=== PATIENT | female | born 1945 | race Caucasian/White ===

== ENCOUNTER → 2020-07-13 | Outpatient (CLI) | payer MEDICARE ==
[~2020-07-13] MED LIST: PERCOCET 5-3251 EACH PO; PERCOCET PO; ULTRAM 50MG TAB50 MG PO; XARELTO10 M1 PO; XARELTO10 MG PO
[2020-07-13 12:21] LABS: HEMATOCRIT 40.5 % (37.0-47.0); HEMOGLOBIN 13.2 gm/dL (12.0-15.0); MCH 30.3 pg (26.0-34.0); MCHC 32.7 g/dL (28.0-37.0); MCV 92.6 fL (80.0-100.0); MPV 6.9 fl. (7.2-11.1); RBC 4.38 mil/uL (4.20-5.00); RDW-CV 13.6 % (10.5-14.5); WBC 6.9 thou/uL (4.0-11.0)
[2020-07-13 12:29] LABS: URINE BILIRUBIN NEGATIVE (Negative); URINE BLOOD TRACE (Negative); URINE CLARITY CLEAR; URINE COLOR YELLOW; URINE GLUCOSE-RANDOM NEGATIVE (Negative); URINE KETONES NEGATIVE (Negative); URINE LEUKOCYTES-REFLEX TRACE (Negative); URINE NITRITE-REFLEX NEGATIVE (Negative); URINE PROTEIN NEGATIVE (Negative); URINE SPECIFIC GRAVITY >= 1.030 (1.005-1.030); URINE UROBILINOGEN 0.2 E.U./dl (0.2-1.0)
[2020-07-13 12:33] LABS: ALBUMIN 3.5 g/dL (3.4-5.0); CALCIUM 8.6 mg/dL (8.5-10.1); CREATININE 0.8 mg/dL (0.6-1.3); POTASSIUM 4.1 mmol/L (3.5-5.1); TOTAL BILIRUBIN 0.3 mg/dL (<0.1-1.0); TOTAL PROTEIN 7.9 g/dL (6.4-8.2)
[2020-07-13 12:34] LABS: PROTIME 10.5 Seconds (9.20-11.50)
[2020-07-13 12:36] LABS: BACTERIA-REFLEX 1-9 Few /HPF (None Seen); CASTS None Seen /LPF (None Seen); CRYSTALS None Seen /LPF (None Seen); MUCUS 0-3 Light strn/LPF (None Seen); SQUAMOUS 4-10 Moderate /LPF (0-3); URINE WBC-REFLEX 6-15 Few /HPF (0-5)
[2020-07-13 12:37] LABS: URINE RBC 0-2 Rare /HPF (0-2)
--- NOTE | 2020-07-14 16:23 | EKG ---
[place] [address] ELECTROCARDIOGRAM REPORT Name: LAKISHA BRIGGS Room: [facility]#: [id number] Admission: 07/13/20 Attend Phys: Etienne Travis, Discharge: Date of : 45 Date of Service: 07/13/20 1234 Report #: [id number] THIS REPORT FOR: //name// [facility] Test Date: 2020-07-13 Test Time: 12:34:46 Pat Name: LAKISHA BRIGGS Department: Room: Gender: Infant Room Teacher: : 1945 Requested By: Etienne Travis Order Number: [id number] Reading MD: Eduardo Hammonds Measurements Intervals [place] Rate: 85 P: 65 [place]: 182 QRS: 52 QRSD: 92 T: 60 QT: 376 QTc: 447 Interpretive Statements Sinus rhythm Borderline low voltage, extremity leads Compared to ECG 06/20/2017 09:52:27 Q waves no longer present Ventricular premature complex(es) no longer present Electronically Signed On 07-14-2020 16:23:53 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
== END ==
LOC: M.LAB 07-12 15:05
PROVIDERS: ATTEND Orthopaedic Surgery
DX: Z01.812 Encounter for preprocedural laboratory examination (principal); Z20.828 Contact with and (suspected) exposure to other viral communicable diseases; M17.11 Unilateral primary osteoarthritis, right knee; I49.9 Cardiac arrhythmia, unspecified

== ENCOUNTER 2020-07-18 14:25 | Inpatient (IN) | payer MEDICARE ==
[~2020-07-18] VITALS: Ht 172.7 cm; Wt 74.8 kg
--- NOTE | ~2020-07-18 | OP ---
[facility] [address] [place] [address] OPERATIVE REPORT Name: LAKISHA BRIGGS Room: [address] M.R.#: [id number] Admission: 07/19/20 Attend Phys: Maryanne Wisdom Discharge: Date of : 45 Report #: [id number] THIS REPORT FOR: //name// cc: Allen Levy MD, Daljeet MD ~ CC: Allen Willoughby DATE OF SERVICE: 07/19/2020 PREOPERATIVE DIAGNOSIS: Right hip osteoarthritis. POSTOPERATIVE DIAGNOSIS: Right hip osteoarthritis. PROCEDURE: Right total hip arthroplasty. SURGEON: Etienne Travis II, DO RECRUITING CONSULTANT: MAGUE [place] ANESTHESIA: General endotracheal. ESTIMATED BLOOD LOSS: 500 mL. ANTIBIOTICS: Ancef preoperatively. DRAINS: Medium Hemovac. COMPLICATIONS: None. CONDITION OF THE PATIENT: Stable to recovery room. IMPLANTS: Listed in operative record and progress note. BRIEF HISTORY: The patient was seen in the preoperative area. Preoperative H and P was performed. Site was marked, questions were answered. Risks and benefits were discussed with the patient about surgery. The patient wished to proceed, assuming all risks. DESCRIPTION OF PROCEDURE: The patient was taken to the operative suite and placed supine on the operating table, given appropriate anesthesia. The patient's operative hip was placed in the Ledbetter table leg arnett and sterilely prepped and draped in the supine position. Surgery began by longitudinal incision over the anterior portion of the hip. This was carried down to the subcutaneous tissues. A small guzman was made in the tensor fascia. It was then [facility] [address] [place] [address] OPERATIVE REPORT Name: CHESTERLAKISHA K Room: [address] .R.#: [id number] Admission: 07/19/20 Attend Phys: Maryanne Wisdom Discharge: Date of : 45 Report #: [id number] split along its fibers and retracted laterally. An H capsulotomy was then performed and careful hemostasis was maintained with electrocautery and Aquamantys. The head and neck cutting alignment guide was then checked with fluoroscopic guidance. Appropriate cut was made to the head and neck and this was removed. Attention was then turned to the acetabulum. Excess labrum was removed. It was then reamed in sequential fashion up to appropriate size. This showed excellent bleeding bone in excellent position on fluoroscopic guidance. The acetabular cup was then malleted into position and then secured with cancellous screw. Metal liner was then applied. The patient's leg was then rotated and extended in the Ledbetter table to expose the femur. It was then broached in a sequential fashion up to appropriate size. The appropriate neck was then trialed with appropriate head length and showed an excellent fit and fill and excellent stability of the hip throughout all range of motion. These trials were then removed. The final stem was then malleted into position and the final head and neck were then malleted into position. It was reduced in appropriate fashion, checked with C-arm for appropriate leg length and showed an excellent leg length throughout the exam without evidence of dislocation upon range of motion and shuck testing. Wound was then copiously irrigated. Hemostasis was maintained with electrocautery and Aquamantys. The pain cocktail was injected. PRP gel sprayed throughout this portion of the hip and drain was activated. The H capsulotomy was then closed with #1 Vicryl in [id number] fashion. Tensor fascia was closed with #1 Vicryl in running fashion. Skin was closed with 2-0 Vicryl and a running 3-0 Monocryl with Dermabond and sterile dressing applied. The patient transported to recovery room in stable condition. Counts were correct throughout the procedure. By: [id number] Travis II, DO /nt
[~2020-07-18 14:25] MED LIST changes: -PERCOCET PO; -XARELTO10 MG PO
[2020-07-19 09:30] VITALS: BP 128/66
[2020-07-19 15:45] VITALS: BP 103/56
[2020-07-19 20:00] VITALS: BP 110/60
[2020-07-20] VITALS (7 sets, daily range): BP systolic 91–103; BP diastolic 49–52
[2020-07-20] MEDS ORDERED: XARELTO10 MG PO (08:38)
[2020-07-20] MEDS ORDERED: PERCOCET PO (08:38)
== END 2020-07-20 15:35 | disposition home health service (06) | DRG 470 ==
LOC: M.ORTHSURG → EDSTATUS 14:27 → M.3W 07-19 08:38 → M.TBA 07-19 08:38 → M.ORTHSURG 07-19 12:06 → M.3W 07-19 15:27
PROVIDERS: Orthopaedic Surgery; ADMIT Internal Medicine; ATTEND Internal Medicine
PROC: 3E0T3BZ Introduction of Anesthetic Agent into Peripheral Nerves and Plexi, Percutaneous Approach (ICD-10-PCS; principal; 2020-07-19)
PROC: 0SR90JA Replacement of Right Hip Joint with Synthetic Substitute, Uncemented, Open Approach (ICD-10-PCS; principal; 2020-07-19)
DX: M16.11 Unilateral primary osteoarthritis, right hip (principal); G89.29 Other chronic pain; Z96.642 Presence of left artificial hip joint; Z79.899 Other long term (current) drug therapy; Z85.3 Personal history of malignant neoplasm of breast; Z92.21 Personal history of antineoplastic chemotherapy; Z90.13 Acquired absence of bilateral breasts and nipples; Z90.710 Acquired absence of both cervix and uterus; Z90.49 Acquired absence of other specified parts of digestive tract